=== PATIENT | male | born 1955 | race African-American/Black ===

== ENCOUNTER 2021-12-15 15:27 | Emergency (ER) | payer MEDICARE ==
[2021-12-15 17:42] LABS: BASOPHIL 0.2 % (0-2); EOSINOPHIL 0 % (0-7); HCT 43.8 % (42.0-52.0); HGB 13.5 g/dl (13.2-18.0); LYMPHOCYTE 6.9 % (15-48); MCH 26.5 pg (25.0-31.0); MCHC 30.8 g/dL (32.0-36.0); MCV 86.1 fL (78.0-100.0); MONOCYTE 4.2 % (0-12); MPV 9.1 fL (6.0-9.5); NEUTROPHIL 88.5 % (41-80); NRBC 0; PLT 310 K/uL (150-400); RBC 5.09 M/uL (4.70-6.00); RDW 14.1 % (11.5-14.0); WBC 10.1 K/uL (4.0-10.5)
[2021-12-15 18:02] LABS: BUN/CREAT RATIO (CALC) 10.4 RATIO; CREATININE 1.54 mg/dL (0.67-1.17); POTASSIUM 4.4 mmol/L (3.5-5.1)
== END 2021-12-15 19:10 | disposition home or self-care (01) ==
LOC: FER 15:27
PROVIDERS: Emergency Medicine
DX: G40.909 Epilepsy, unspecified, not intractable, without status epilepticus (principal); I10 Essential (primary) hypertension; Z79.899 Other long term (current) drug therapy
CPT/HCPCS: 36415; 70450; 71045; 80048; 85025; 93005; J1953; J2060